=== PATIENT | male | born 2005 | race Caucasian/White ===

== ENCOUNTER 2024-01-27 21:40 | Emergency (ER) | payer BC ==
[~2024-01-27] VITALS: Ht 180.3 cm; Wt 72.7 kg
[2024-01-27 21:45] VITALS: TEMP 97.5
[2024-01-27] MEDS ORDERED: Cephalexin 500 MG CAP PO ONE (23:45)
[2024-01-27] MEDS ORDERED: CEPHALEXIN500 M1 PO (23:52)
[2024-01-27 23:53] VITALS: BP 124/84; PULSE 65
== END 2024-01-27 23:57 | disposition home or self-care (01) ==
LOC: COL.ER 21:40
DX: S62.634B Displaced fracture of distal phalanx of right ring finger, initial encounter for open fracture (principal); W20.8XXA Other cause of strike by thrown, projected or falling object, initial encounter